=== PATIENT | female | born 2005 ===

== ENCOUNTER → 2024-11-16 09:56 | Outpatient (CLI) | payer OTHER ==
[2024-11-16 12:43] LABS: HEMATOCRIT 37.8 % (36.0-45.00); HEMOGLOBIN 12.6 g/dL (12.0-15.00); MEAN CELL VOLUME 87.5 fL (80.00-100.00); MEAN CORPUSCULAR HEMOGLOBIN 29.3 pg (27.00-32.0); MEAN CORPUSCULAR HGB CONC 33.4 g/dl (32.0-36.0); PLATELET COUNT 450 K/uL (150-450); RED BLOOD COUNT 4.32 M/uL (4.00-6.00); RED CELL DISTRIBUTION WIDTH 14.6 % (11.5-14.5)
[2024-11-16 12:47] LABS: PH,URINE 5.5 (5.0-8.0); URINE APPEARANCE Cloudy; URINE BILIRRUBIN Negative (NEGATIVE); URINE BLOOD Negative; URINE COLOR Dark Yellow; URINE GLUCOSE Negative (NEGATIVE); URINE KETONE Trace (NEGATIVE); URINE LEUKOCYTE Small; URINE NITRATE Negative; URINE PROTEIN Trace (NEGATIVE)
[2024-11-16 12:48] LABS: URINE EPITHELIAL CELLS 80.9 uL (0.0-38.8); URINE RBC 3.9 uL (0.0-20.8); URINE WBC 105.9 uL (0.0-23.2)
[2024-11-16 12:59] LABS: URINE BACTERIA > 9821.5 uL (0.0-1933); URINE CAST 0.88 uL (0.0-1.40)
[2024-11-16 13:31] LABS: BILIRUBIN TOTAL 0.41 mg/dL (0.3-1.2); CALCIUM 8.6 mg/dL (8.5-10.1); CHOL HDL RATIO 2.7 (0-5.0); CREATININE SERUM 0.59 mg/dL (0.55-1.02); FREE TRIODOTIRONINE 2.43 pg/ml (2.18-3.98); GFR 128.67; POTASSIUM 4.58 mEq/L (3.5-5.1); T4 FREE 1.09 NG/ML (0.76-1.46); TSH 1.34 uIU/mL (0.358-3.74)
[2024-11-16 14:52] LABS: CORTISOL 12.23 ug/dl; VITAMIN D3 25 HYDROXY 63.7 ng/ml (30-120)
== END | disposition home or self-care (01) ==
LOC: LAB 09:56
PROVIDERS: ATTEND Internal Medicine Endocrinology, Diabetes & Metabolism
DX: E11.65 Type 2 diabetes mellitus with hyperglycemia (principal); E03.9 Hypothyroidism, unspecified; D64.9 Anemia, unspecified; E53.8 Deficiency of other specified B group vitamins; E78.2 Mixed hyperlipidemia; E29.1 Testicular hypofunction; N92.5 Other specified irregular menstruation; N39.0 Urinary tract infection, site not specified

== ENCOUNTER 2024-11-16 12:15 | Outpatient (CLI) | payer OTHER | END 2024-11-16 12:23 | disposition home or self-care (01) | LOC: SONOGRAMA 12:15 | PROVIDERS: ATTEND Internal Medicine Endocrinology, Diabetes & Metabolism | DX: R74.01 Elevation of levels of liver transaminase levels (principal); K75.81 Nonalcoholic steatohepatitis (NASH); E04.1 Nontoxic single thyroid nodule ==